=== PATIENT | female | born 1970 | race Caucasian/White ===

== ENCOUNTER 2024-06-11 10:55 | Outpatient (CLI) | payer BC | END 2024-06-11 10:56 | disposition home or self-care (01) | LOC: BICULT 10:55 | PROVIDERS: ATTEND Surgery | DX: C50.919 Malignant neoplasm of unspecified site of unspecified female breast (principal) ==

== ENCOUNTER 2025-04-20 11:46 | Outpatient (CLI) | payer BC | END 2025-04-20 11:47 | disposition home or self-care (01) | LOC: BICMAMMO 11:46 | PROVIDERS: ATTEND Internal Medicine Hematology & Oncology | DX: C50.811 Malignant neoplasm of overlapping sites of right female breast (principal); D50.8 Other iron deficiency anemias | CPT/HCPCS: 77080 ==